=== PATIENT | male | born 1990 | race Two or more races ===

== ENCOUNTER 2024-04-15 08:55 | Inpatient (IN) | payer OTHER ==
[2024-04-13 12:10] LABS: Urine Bacteria None Seen /hpf (None Seen); Urine WBC None Seen /hpf (0 - 3)
[2024-04-13 12:25] LABS: Basophils # (auto) 0.1 10 ^3/uL (0-0.2); Basophils % (auto) 0.6 % (0.0-2.0); Eosinophils # (auto) 0.2 10 ^3/uL (0-0.8); Eosinophils % (auto) 2.8 % (0.0-7.0); Hematocrit 42.5 % (41.0-53.0); Hemoglobin 14.3 g/dL (13.5-17.5); Lymphocytes # (auto) 3.1 10 ^3/uL (0.4-5.4); Mean Corpuscular Hemoglobin 29.4 pg (28.0-32.0); Mean Corpuscular Hgb Conc. 33.7 g/dL (32.0-36.0); Mean Corpuscular Volume 87.1 fL (80.0-100.0); Monocytes # (auto) 0.7 10 ^3/uL (0-1.3); Monocytes % (auto) 8.1 % (0.0-12.0); Neutrophils # (auto) 3.9 10 ^3/uL (1.6-8.6); Neutrophils % (auto) 49.5 % (37.0-80.0); Nucleated Red Blood Cells % 0.1 %; Platelet Count (auto) 251 10^3/uL (140-450); Red Blood Cells 4.88 10^6/uL (4.5-5.90); Red Cell Distribution Width 13.9 % (11.8-14.3)
[2024-04-13 12:39] LABS: Alanine Aminotransferase 60 U/L (7-40); Albumin 4.7 g/dL (3.2-4.8); Alkaline Phosphatase 85 U/L (46-116); Anion Gap 6 (5-15); Aspartate Aminotransferase 19 U/L (13-40); BUN/Creatinine Ratio 8.7 (10.0-20.0); Blood Urea Nitrogen 6 mg/dL (9-23); Carbon Dioxide 27 mmol/L (20-30); Chloride 106 mmol/L (98-107); Glucose 88 mg/dL (74-106); Potassium 3.8 mmol/L (3.5-5.1); Sodium 139 mmol/L (136-145)
[2024-04-13 12:40] LABS: Bilirubin, Total 0.5 mg/dL (0.2-1.0); Total Protein 7.3 g/dL (5.7-8.2)
[2024-04-13 12:47] LABS: Prothrombin Time 10.6 sec (9.3-11.8)
[2024-04-13 13:13] LABS: Urine Blood Negative /uL (Negative); Urine Clarity Clear (Clear); Urine Color Colorless (Yellow); Urine Protein, UAD Negative (Negative); Urine Specific Gravity 1.007 (1.001-1.035); Urine Urobilinogen Normal (Negative); Urine pH 6.5 (5.0-9.0)
[2024-04-14 21:00] VITALS: BP 101/73; PULSE 61; RESP 20; TEMP 98.4; O2SAT 96
[~2024-04-15] VITALS: Ht 177.8 cm; Wt 182.1 kg
[2024-04-15] VITALS (8 sets, daily range): BP systolic 110–119; BP diastolic 59–69; PULSE 55–62; RESP 16–18; TEMP 98.1; O2SAT 59–96
[2024-04-15] MEDS: ceFAZolin 2 GM/D5W50ml 50 ML IV ONE (10:04)
[2024-04-15] MEDS ORDERED: KETOROLAC TROMETH 30 MG/ML 1ML VIAL ONE (10:45)
[2024-04-15] MEDS ORDERED: PROPOFOL 10 MG/ML 20 ML IV ONE (10:45)
[2024-04-15] MEDS ORDERED: GLYCOPYRROLATE 0.2 MG/ML 1ML VIAL ONE (10:45)
[2024-04-15] MEDS ORDERED: fentaNYL CITRATE 100 MCG/2 ML VL ONE (10:45)
[2024-04-15] MEDS ORDERED: ROCURONIUM 10MG/ML 10ML VIAL IV ONE (10:45)
[2024-04-15] MEDS ORDERED: KETAMINE 50mg/ML 1ml syringe ONE (10:45)
[2024-04-15] MEDS ORDERED: DexAMETHasone SOD PHOS 10MG/1ML VIAL INJ ONE (10:45)
[2024-04-15] MEDS ORDERED: SUGAMMADEX 200mg/2ml Vial (100MG/ML) IV ONE ×2 (10:45)
[2024-04-15] MEDS ORDERED: MIDAZOLAM HCL 2MG/2ML 2ml VIAL (1mg/ml) ONE (10:45)
[2024-04-15] MEDS ORDERED: LIDOCAINE 2% (LOCAL ANESTH.) PF 5ml SDV ONE (10:45)
[2024-04-15] MEDS ORDERED: ONDANSETRON HCL 4 MG/2 ML VIAL ONE (10:45)
[2024-04-15] MEDS: BUPIVACAINE HCL 0.25% P/F 10 ML VIAL ONE (11:07)
[2024-04-15] MEDS ORDERED: HYDROmorphone HCL 2 MG/ML VL/or syr ONE (12:00)
[2024-04-15] MEDS ORDERED: ceFAZolin 1GM VL ONE (12:42)
[2024-04-15] MEDS ORDERED: MEPERIDINE HCL (25 MG/ML) 1ML VIAL ONE (13:40)
[2024-04-15] MEDS ORDERED: HYDROmorphone HCL 2 MG/ML VL/or syr IV PRN (13:45)
[2024-04-15] MEDS ORDERED: ceFAZolin 2 GM/D5W50ml 50 ML IV SCH (14:00)
[2024-04-15] MEDS: HYDROmorphone HCL 2 MG/ML VL/or syr IV ONE ×3 (14:21→15:00)
[2024-04-15] MEDS ORDERED: NITROGLYCERIN 0.4 MG SL TAB SL PRN (15:00)
[2024-04-15] MEDS ORDERED: MORPHINE SULFATE INJ 2 MG/ml SYRG IV PRN (15:00)
[2024-04-15] MEDS: PANTOPRAZOLE 40 MG/10 ML VIAL INJ IV ONE (16:35)
[2024-04-15] MEDS: ONDANSETRON HCL 4 MG/2 ML VIAL IV ONE (17:24)
[2024-04-15] MEDS: D5W/SOD CHL 0.45%/KCL 20MEQ 1,000 ML IV SCH (18:05)
[2024-04-15] MEDS: HYDROmorphone HCL 2 MG/ML VL/or syr IV PRN (19:53)
[2024-04-15] MEDS: ceFAZolin 2 GM/D5W50ml 50 ML IV SCH (20:04)
[2024-04-15] MEDS: ONDANSETRON HCL 4 MG/2 ML VIAL IV PRN (21:59)
[2024-04-16 01:00] VITALS: BP 103/41; PULSE 49; RESP 20; TEMP 97.6; O2SAT 98
[2024-04-16 05:00] VITALS: BP 112/60; PULSE 60; RESP 20; TEMP 98.1; O2SAT 97
[2024-04-16 06:13] LABS: Basophils # (auto) 0 10 ^3/uL (0-0.2); Basophils % (auto) 0.1 % (0.0-2.0); Eosinophils # (auto) 0 10 ^3/uL (0-0.8); Hematocrit 40.5 % (41.0-53.0); Hemoglobin 13.7 g/dL (13.5-17.5); Lymphocytes # (auto) 1.4 10 ^3/uL (0.4-5.4); Lymphocytes % (auto) 12.1 % (10.0-50.0); Mean Corpuscular Hgb Conc. 33.9 g/dL (32.0-36.0); Mean Corpuscular Volume 88.4 fL (80.0-100.0); Monocytes % (auto) 8.3 % (0.0-12.0); Neutrophils # (auto) 9.5 10 ^3/uL (1.6-8.6); Neutrophils % (auto) 79.5 % (37.0-80.0); Platelet Count (auto) 237 10^3/uL (140-450); Red Blood Cells 4.58 10^6/uL (4.5-5.90)
[2024-04-16 06:36] LABS: Alanine Aminotransferase 52 U/L (7-40); Alkaline Phosphatase 68 U/L (46-116); Anion Gap 7 (5-15); BUN/Creatinine Ratio 12.3 (10.0-20.0); Blood Urea Nitrogen 8 mg/dL (9-23); Calcium 9.5 mg/dL (8.7-10.4); Carbon Dioxide 28 mmol/L (20-30); Chloride 104 mmol/L (98-107); Glucose 131 mg/dL (74-106); Potassium 4.3 mmol/L (3.5-5.1); Sodium 139 mmol/L (136-145)
[2024-04-16 06:37] LABS: Albumin 4.2 g/dL (3.2-4.8)
[2024-04-16 06:38] LABS: Aspartate Aminotransferase 15 U/L (13-40); Bilirubin, Total 0.6 mg/dL (0.2-1.0); Total Protein 6.9 g/dL (5.7-8.2)
[2024-04-16 07:33] VITALS: BP 116/67; PULSE 64; RESP 20; TEMP 98.6; O2SAT 96
[2024-04-16 08:10] VITALS: PULSE 55; PULSE 64; RESP 20; O2SAT 96
[2024-04-16] MEDS ORDERED: CEPH500C PO (10:00)
[2024-04-16] MEDS ORDERED: DOCU-94 PO (10:00)
[2024-04-16] MEDS ORDERED: HYDR-4902 PO (10:00)
[2024-04-16] MEDS: PANTOPRAZOLE 40 MG/10 ML VIAL INJ IV SCH (10:28)
[2024-04-16 11:45] VITALS: BP 116/67; PULSE 64; RESP 20; TEMP 98.6; O2SAT 96
[2024-04-16 11:51] VITALS: BP 131/68; PULSE 68; RESP 20; TEMP 98.6; O2SAT 98
[2024-04-16] MEDS: HYDROcodone-ACET 5/325MG TAB PO PRN (12:07)
[2024-04-16] MEDS ORDERED: MEPERIDINE HCL (25 MG/ML) 1ML VIAL IV ONE (14:29)
[2024-04-17] MEDS ORDERED: HYDR1TAB97 PO (11:07)
== END 2024-04-16 14:30 | disposition home or self-care (01) | DRG 354 ==
LOC: SUR 08:55 → TELE 15:02 → EAST 17:00 → TELE-EAST 17:05
PROVIDERS: ADMIT Internal Medicine; ATTEND Internal Medicine
PROC: 0WUF0JZ Supplement Abdominal Wall with Synthetic Substitute, Open Approach (ICD-10-PCS; principal; 2024-04-15 11:48)
DX: K43.2 Incisional hernia without obstruction or gangrene (principal); Z68.43 Body mass index [BMI] 50.0-59.9, adult; E66.01 Morbid (severe) obesity due to excess calories; K59.00 Constipation, unspecified; G47.30 Sleep apnea, unspecified
CPT/HCPCS: 36415; 80053; 81001; 85025; 85610; 85730; 86850; 86900; 86901; C1781; G0378; J0690; J1100; J1885; J2001; J2250; J2405; J2470; J2704; J3490

== ENCOUNTER 2024-04-23 13:51 | Inpatient (IN) | payer OTHER ==
[~2024-04-23 13:51] MED LIST: CEPH500C PO; DOCU-94 PO; HYDR1TAB97 PO
[2024-04-23 18:15] VITALS: BP 117/71; PULSE 80; RESP 17; TEMP 97.9; O2SAT 98
[2024-04-23] MEDS ORDERED: HYDROmorphone HCL 2 MG/ML VL/or syr IV PRN (19:00)
[2024-04-23 19:30] VITALS: BP 116/75; PULSE 89; RESP 17; TEMP 98.1; O2SAT 95
[2024-04-23 20:00] VITALS: PULSE 68; RESP 20; O2SAT 96
[2024-04-23] MEDS ORDERED: ceFAZolin 2 GM/D5W50ml 50 ML IV SCH (20:16)
[2024-04-23 20:27] LABS: Basophils # (auto) 0 10 ^3/uL (0-0.2); Basophils % (auto) 0.5 % (0.0-2.0); Eosinophils # (auto) 0.5 10 ^3/uL (0-0.8); Eosinophils % (auto) 4.7 % (0.0-7.0); Hematocrit 44.5 % (41.0-53.0); Lymphocytes # (auto) 2.4 10 ^3/uL (0.4-5.4); Lymphocytes % (auto) 24.6 % (10.0-50.0); Mean Corpuscular Hemoglobin 29.6 pg (28.0-32.0); Mean Corpuscular Hgb Conc. 33.7 g/dL (32.0-36.0); Mean Corpuscular Volume 87.7 fL (80.0-100.0); Monocytes # (auto) 1.1 10 ^3/uL (0-1.3); Neutrophils # (auto) 5.7 10 ^3/uL (1.6-8.6); Neutrophils % (auto) 59.2 % (37.0-80.0); Red Blood Cells 5.07 10^6/uL (4.5-5.90); Red Cell Distribution Width 13.9 % (11.8-14.3); White Blood Cell 9.7 10^3/uL (4.4-10.8)
[2024-04-23 21:25] LABS: INR 1.08 (0.9-1.15); Prothrombin Time 11.4 sec (9.3-11.8)
[2024-04-23 21:34] LABS: Alanine Aminotransferase 78 U/L (7-40); Albumin 4.7 g/dL (3.2-4.8); Alkaline Phosphatase 177 U/L (46-116); Anion Gap 11 (5-15); Aspartate Aminotransferase 54 U/L (13-40); BUN/Creatinine Ratio 15.2 (10.0-20.0); Blood Urea Nitrogen 10 mg/dL (9-23); Calcium 9.9 mg/dL (8.7-10.4); Carbon Dioxide 24 mmol/L (20-30); Chloride 100 mmol/L (98-107); Glucose 95 mg/dL (74-106); Potassium 4.1 mmol/L (3.5-5.1); Sodium 135 mmol/L (136-145)
[2024-04-23 21:35] LABS: Total Protein 7.9 g/dL (5.7-8.2)
[2024-04-23] MEDS: ceFAZolin 2 GM/D5W50ml 50 ML IV SCH (22:00)
[2024-04-23] MEDS: D5W/SOD CHL 0.45%/KCL 20MEQ 1,000 ML IV SCH (22:33)
[2024-04-23] MEDS ORDERED: NITROGLYCERIN 0.4 MG SL TAB SL PRN (23:15)
[2024-04-24 01:00] VITALS: BP 112/64; PULSE 82; RESP 16; TEMP 97.9; O2SAT 93
[2024-04-24 05:00] VITALS: BP 117/64; PULSE 75; RESP 16; TEMP 97.8; O2SAT 93
[2024-04-24 07:04] LABS: Basophils # (auto) 0 10 ^3/uL (0-0.2); Basophils % (auto) 0.5 % (0.0-2.0); Eosinophils # (auto) 0.6 10 ^3/uL (0-0.8); Eosinophils % (auto) 7.2 % (0.0-7.0); Hematocrit 41.2 % (41.0-53.0); Hemoglobin 14.3 g/dL (13.5-17.5); Lymphocytes # (auto) 2.3 10 ^3/uL (0.4-5.4); Lymphocytes % (auto) 26.3 % (10.0-50.0); Mean Corpuscular Hemoglobin 30.3 pg (28.0-32.0); Mean Corpuscular Hgb Conc. 34.8 g/dL (32.0-36.0); Mean Corpuscular Volume 87.1 fL (80.0-100.0); Monocytes # (auto) 0.9 10 ^3/uL (0-1.3); Monocytes % (auto) 10.4 % (0.0-12.0); Neutrophils # (auto) 4.8 10 ^3/uL (1.6-8.6); Neutrophils % (auto) 55.6 % (37.0-80.0); Nucleated Red Blood Cells % 0.1 %; Red Blood Cells 4.73 10^6/uL (4.5-5.90); Red Cell Distribution Width 13.4 % (11.8-14.3); White Blood Cell 8.6 10^3/uL (4.4-10.8)
[2024-04-24 07:07] LABS: Alanine Aminotransferase 72 U/L (7-40); Alkaline Phosphatase 168 U/L (46-116); Anion Gap 9 (5-15); Aspartate Aminotransferase 40 U/L (13-40); BUN/Creatinine Ratio 13.8 (10.0-20.0); Blood Urea Nitrogen 9 mg/dL (9-23); Calcium 9.8 mg/dL (8.7-10.4); Carbon Dioxide 26 mmol/L (20-30); Chloride 103 mmol/L (98-107); Glucose 103 mg/dL (74-106); Potassium 3.8 mmol/L (3.5-5.1); Sodium 138 mmol/L (136-145)
[2024-04-24 07:08] LABS: Albumin 4.5 g/dL (3.2-4.8); Bilirubin, Total 0.9 mg/dL (0.2-1.0); Total Protein 7.7 g/dL (5.7-8.2)
[2024-04-24 08:00] VITALS: PULSE 67; RESP 18; O2SAT 93
[2024-04-24 08:32] VITALS: BP 116/59; PULSE 67; RESP 18; TEMP 98; O2SAT 96
[2024-04-24] MEDS: ENOXAPARIN SOD 30 MG/0.3 ML SYRINGE SC SCH (10:12)
[2024-04-24] MEDS: ASPirin 81 mg TAB PO SCH (10:12)
[2024-04-24 12:22] VITALS: TEMP 36.7
[2024-04-24 13:00] VITALS: BP 104/68; PULSE 71; RESP 18; TEMP 98.1; O2SAT 95
== END 2024-04-24 13:42 | disposition home or self-care (01) | DRG 556 ==
LOC: WEST WING 18:01
PROVIDERS: ADMIT Nurse Practitioner Family; ATTEND Family Medicine
DX: M79.89 Other specified soft tissue disorders (principal); G47.30 Sleep apnea, unspecified; E66.01 Morbid (severe) obesity due to excess calories; Z79.899 Other long term (current) drug therapy
CPT/HCPCS: 36415; 80053; 85025; 85610; 93970; G0378